=== PATIENT | female | born 1990 | race Hispanic/Latino ===

== ENCOUNTER 2020-12-16 12:05 | Observation (INO) | payer BC ==
[2020-12-16] MEDS ORDERED: hydrALAZINE 20 MG/ML VIAL SLOW IVP PRN (13:39)
[2020-12-16] MEDS: Acetaminophen/Codeine 30-300mg Tablet PO PRN ×2 (14:11→21:29)
[2020-12-16 14:42] LABS: Hemoglobin 10.5 g/dL (12.0-15.5); Mean Corpuscular Hemoglobin 31.9 pg (27.0-33.0); Mean Corpuscular Volume 88.8 fl (81.6-98.3); Mean Platelet Volume 10.4 fl (7.4-10.4); Platelet Count 276 10x3/uL (150-450); RBC Distribution Width 12.3 % (11.5-14.5); Red Blood Cell (RBC) Count 3.29 10x6/uL (3.90-5.03); White Blood Cell (WBC) Count 21.9 10x3/uL (3.5-10.5)
[2020-12-16 14:58] LABS: MDiff Complete? YES
[2020-12-16 15:08] LABS: Bilirubin Neg (Negative); Blood, Urine 50 (Negative); Clarity Clear (Clear); Glucose, Urine (Dipstick) Normal (Negative); Ketone, Urine 50 mg/dL (Negative); Leukocyte 500 (Negative); Nitrite Negative (Negative); Protein, Urine (Dipstick) 15 mg/dl (Neg-Trace); Specific Gravity, Urine 1.005 (1.002-1.036); Urobilinogen Normal mg/dL (Less than 2); pH, Urine 6.5 (5.0-9.0)
[2020-12-16] MEDS ORDERED: Lactated Ringer's 1,000 ML IV SCH (15:15)
[2020-12-16 15:19] LABS: WBC/HPF 21-50 HPF (0-3)
[2020-12-16 15:24] LABS: Bacteria/HPF 2+ HPF (None Seen)
[2020-12-16 15:55] LABS: Band 2 % (5-11); Lymphocytes 9 % (21-51); Monocytes 3 % (0-10); Neutrophil 86 % (42-75)
[2020-12-16 15:57] LABS: Hypochromia SLIGHT = 6-15 cells (100X) (0-5/hpf); Platelet Morphology Comment Appears Adequate
[2020-12-16] MEDS ORDERED: Zolpidem Tartrate 5 MG TAB PO PRN (16:27)
[2020-12-16] MEDS ORDERED: Sodium Chloride 0.9% 1,000 ML IV SCH (16:30)
[2020-12-16 16:45] LABS: SARS-CoV-2 NAA Rapid Test Not Detected (NotDetected)
[2020-12-16] MEDS ORDERED: Ondansetron ODT 4 MG TAB SL SCH (17:00)
[2020-12-16] MEDS ORDERED: cefTRIAXone\\ROCEPHIN 2 GM in Sodium Chloride 0.9% 100 ML IVPB SCH (17:15)
[2020-12-16] MEDS: Ondansetron ODT 4 MG TAB SL PRN ×2 (18:39→23:37)
[2020-12-16] MEDS: Famotidine 20 MG TAB PO SCH (21:29)
[2020-12-16] MEDS: Sodium Chloride 0.9% 1,000 ML IV SCH (21:30)
[2020-12-17] MEDS: Sodium Chloride 0.9% 1,000 ML IV SCH ×3 (05:30→20:30)
[2020-12-17] MEDS: cefTRIAXone\\ROCEPHIN 1 GM in Sodium Chloride 0.9% 100 ML IVPB SCH ×2 (05:30→17:32)
[2020-12-17] MEDS: Acetaminophen 500 MG TAB PO PRN ×2 (05:32→15:21)
[2020-12-17] MEDS: Ondansetron ODT 4 MG TAB SL PRN ×2 (06:36→15:44)
[2020-12-17 06:40] LABS: Anion Gap 11 mmol/L (10-20); BUN (Urea Nitrogen) Less than 4 mg/dL (7.0-18.7); Calc. Creatinine Clearance 0 mL/min (70-130); Calcium 7.8 mg/dL (7.8-10.44); Carbon Dioxide 22 mmol/L (22-29); Chloride 106 mmol/L (98-107); Glucose 82 mg/dL (70-105); Potassium 3.4 mmol/L (3.5-5.1); Sodium 136 mmol/L (136-145)
[2020-12-17 06:44] LABS: Hemoglobin 9.2 g/dL (12.0-15.5); Mean Corpuscular HGB CONC 34.2 g/dL (32.0-36.0); Mean Corpuscular Hemoglobin 30.6 pg (27.0-33.0); Mean Corpuscular Volume 89.4 fl (81.6-98.3); Mean Platelet Volume 10.4 fl (7.4-10.4); Platelet Count 233 10x3/uL (150-450); RBC Distribution Width 12.6 % (11.5-14.5); Red Blood Cell (RBC) Count 3.01 10x6/uL (3.90-5.03); White Blood Cell (WBC) Count 17.2 10x3/uL (3.5-10.5)
[2020-12-17 06:59] LABS: MDiff Complete? YES
[2020-12-17 07:04] LABS: Band 21 % (5-11); Lymphocytes 5 % (21-51); Monocytes 4 % (0-10); Neutrophil 70 % (42-75)
[2020-12-17 07:05] LABS: Dohle Bodies SLIGHT
[2020-12-17] MEDS: Famotidine 20 MG TAB PO SCH ×2 (09:01→20:31)
[2020-12-17] MEDS: Acetaminophen/Codeine 30-300mg Tablet PO PRN (09:13)
[2020-12-18] MEDS: Acetaminophen 500 MG TAB PO PRN ×2 (04:30→13:28)
[2020-12-18] MEDS: Sodium Chloride 0.9% 1,000 ML IV SCH ×2 (04:30→13:50)
[2020-12-18] MEDS: Ondansetron ODT 4 MG TAB SL PRN (04:42)
[2020-12-18] MEDS: cefTRIAXone\\ROCEPHIN 1 GM in Sodium Chloride 0.9% 100 ML IVPB SCH ×2 (05:00→18:56)
[2020-12-18 07:26] LABS: #Eosinphils 0.1 10x3/uL (0.0-0.5); #Monocytes 0.6 10x3/uL (0.0-1.1); #Neutrophils 10.7 10x3/uL (1.5-8.4); %Basophils 0.2 % (0.0-2.0); %Eosinophils 0.5 % (0.0-6.0); %Lymphocytes 6.9 % (18.0-47.0); %Monocytes 4.9 % (0.0-10.0); %Neutrophils 86.3 % (40.0-75.0); Mean Corpuscular HGB CONC 33.9 g/dL (32.0-36.0); Mean Corpuscular Hemoglobin 30.4 pg (27.0-33.0); Mean Corpuscular Volume 89.7 fl (81.6-98.3); Mean Platelet Volume 10.4 fl (7.4-10.4); Platelet Count 236 10x3/uL (150-450); RBC Distribution Width 12.7 % (11.5-14.5); Red Blood Cell (RBC) Count 2.63 10x6/uL (3.90-5.03); White Blood Cell (WBC) Count 12.4 10x3/uL (3.5-10.5)
[2020-12-18] MEDS: Famotidine 20 MG TAB PO SCH (09:07)
[2020-12-18 20:52] VITALS: BP 112/65; TEMP 98
== END 2020-12-18 20:45 | disposition home or self-care (01) ==
LOC: CSHPP 12:05 → INTOOBSV 12:05 → CSHANTE 12:05 → UNDOADMIN 12:05
PROVIDERS: ADMIT Obstetrics & Gynecology; ATTEND Obstetrics & Gynecology
DX: O23.02 Infections of kidney in pregnancy, second trimester (principal); O99.282 Endocrine, nutritional and metabolic diseases complicating pregnancy, second trimester; E87.6 Hypokalemia; Z3A.18 18 weeks gestation of pregnancy; Z20.822 Contact with and (suspected) exposure to COVID-19
CPT/HCPCS: 36415; 80048; 81001; 85025; 87086; 96365; 96366; 96376; G0378; J0696; J3490; Q0162; U0002